=== PATIENT | male | born 1955 | race American Indian/Alaskan Native ===

== ENCOUNTER 2018-03-29 03:21 | Emergency (ER) | payer MEDICAID ==
[2018-03-29 03:42] VITALS: RESP 18; O2SAT 96
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
[2018-03-29 06:36] VITALS: BP 138/69; PULSE 88; TEMP 98
== END 2018-03-29 06:36 | disposition home or self-care (01) ==
LOC: ED 03:21
DX: Z76.5 Malingerer [conscious simulation] (principal); Z59.0 Homelessness

== ENCOUNTER 2018-04-20 03:11 | Emergency (ER) | payer MEDICAID ==
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
[2018-04-20 09:29] VITALS: BMI 25.0
[2018-04-20 09:30] VITALS: BP 110/78; PULSE 75; RESP 18; TEMP 97.3; O2SAT 100
== END 2018-04-20 07:58 | disposition home or self-care (01) ==
LOC: ED 03:11
DX: F10.129 Alcohol abuse with intoxication, unspecified (principal)